=== PATIENT | female | born 1985 | race Caucasian/White ===

== ENCOUNTER 2016-10-17 10:51 | Emergency (ER) | payer MEDICAID ==
[2016-10-17 11:14] VITALS: TEMP 98.4
[2016-10-17] MEDS ORDERED: IBUPROFEN 600 MG TAB PO ONE (13:27)
[2016-10-17] MEDS ORDERED: ACETAMINOPHEN 500 MG TAB PO ONE (13:27)
[2016-10-17] MEDS ORDERED: LIDOCAINE 5% 1 EA PATCH TD ONE (13:27)
[2016-10-17 13:50] VITALS: BP 134/70; PULSE 84; RESP 18; O2SAT 97
--- NOTE | 2016-10-17 13:53 | EDPHY ---
H & P Stated Complaint: l2 l4 stress fx a few years ago/slipped and fell yesterday/ reinjured lower - Personal History LMP (Females 10-55): 1-7 Days Ago Current Tetanus/Diphtheria Vaccine: Yes - Medical/Surgical History Hx Asthma: No Hx Chronic Respiratory Disease: No Hx Diabetes: No Hx Cardiac Disease: No Hx Renal Disease: No Hx Cirrhosis: No Hx Alcoholism: No Hx HIV/AIDS: No Hx Splenectomy or Spleen Trauma: No Other PMH: Knee surgery, adenoids removed back prob/fx - Social History Smoking Status: Current every day smoker HPI/ROS: Chief complaint: Low back injury History of present illness: This is a 31-year-old female who presents to the emergency department for low back injury. Patient reports yesterday she tripped on a toy a falling backwards and landing directly onto her buttocks. Since then she has had pain in the low back and tailbone region. Pain has been persistent. It is worse with movement. She denies associated signs or symptoms including no paresthesias, no weakness or paralysis no bowel or bladder dysfunction. No other trauma reported. Patient has a history of fractures in her lumbar and sacral region from a few years ago. Review of systems: A 10 point review of systems was obtained and other than described above was negative (Oscar Wilson) - Physical Exam Exam: General Appearance: Alert, nontoxic Eyes: PERRLA Respiratory: Lungs clear to auscultation bilaterally Cardiac: Regular rate and rhythm. Gastrointestinal: Soft, nondistended, nontender Neurological: Alert and oriented x4. Strength and sensation intact and symmetrical. Skin: No lesions consistent with trauma noted on examination. Musculoskeletal: Head is normocephalic, atraumatic. Cervical and thoracic spine and paraspinal muscles are nontender. There is diffuse tenderness to the lower lumbar and sacral region and paraspinal muscles. There is no specific point tenderness, no crepitus, bony deformity or step-off appreciated. Pelvis stable to rocking motion. She is moving all extremities without difficulty. She is ambulating well. (Oscar Wilson) Constitutional: Initial Vital Signs Temperature (C) 36.9 C 10/17/16 11:06 Heart Rate 90 10/17/16 11:06 Respiratory Rate 17 10/17/16 11:06 Blood Pressure 135/70 H 10/17/16 11:06 O2 Sat (%) 96 10/17/16 11:06 O2 Delivery Mode Room Air Allergies/Adverse Reactions: No Known Allergies Allergy (Verified 10/17/16 11:05) Home Medications: Medication Instructions Recorded Hydrocodone/APAP 5/325 [[place] 1 tab PO Q6H #10 tab 10/17/16 5/325 (*)] IBUPROFEN 10/17/16 Medical Decision Making - Diagnostics Imaging: I viewed and interpreted images myself ED Course/Re-evaluation: Patient is discussed with my secondary supervising physician Dr. Tracy Rehman. Patient presents to the emergency department for evaluation low back pain after a slip and fall last night. She is moving well on her own. She has a nonfocal neurologic exam. X-rays with a questionable right S3 sacral fracture. I believe she is appropriate for outpatient management. She will be discharged home. Home care is discussed including pain management. She is referred to a spine doctor. Return precautions are given. Patient voiced understanding and agreement with plan. (Oscar Wilson) The patient was evaluated and managed by the physician pharmacy affairs assistant. I have reviewed this chart and I agree with the findings and plan of care as documented , as indicated by my signature. I am the secondary supervising physician. ( Tracy Rehman) Differential Diagnosis: Included but not limited to contusion, sprain or strain, bony fracture, herniated intervertebral disc, unlikely cauda equina syndrome (Oscar Wilson) - Data Points Medications Given: Discontinued Medications Acetaminophen (Tylenol) 1,000 mg PO EDNOW ONE Stop: 10/17/16 13:28 Last Admin: 10/17/16 13:40 Dose: 1,000 mg Ibuprofen (Motrin) 600 mg PO EDNOW ONE Stop: 10/17/16 13:28 Last Admin: 10/17/16 13:40 Dose: 600 mg Lidocaine (Lidoderm 5%) 1 ea TD EDNOW ONE Stop: 10/17/16 13:28 Last Admin: 10/17/16 13:40 Dose: 1 ea Miscellaneous Information (Patch Removal) 1 ea TD [id number] HUNG Stop: 04/15/17 20:59 Last Admin: 10/17/16 13:40 Dose: 1 ea Departure - Departure Disposition: Home, Routine, Self-Care Clinical Impression: Sacral fracture Condition: Good Instructions: Sacral Fracture (ED) Additional Instructions: Follow-up with a spine doctor for recheck In regards to pain control see the following: Use ibuprofen [600] mg [3] times a day for the next 2-3 days for pain In addition You have been prescribed [[place]] for pain. [[place]] contains Tylenol, do not take extra Tylenol/acetaminophen/Apap with it. It is sedating. If symptoms worsen or new symptoms develop return to the emergency room for recheck Referrals: EMIGDIO POLO [Primary Care Provider] - As per Instructions Dominik Randhawa MD [Medical Doctor] - As per Instructions Prescriptions: Hydrocodone/APAP 5/325 [[place] 5/325 (*)] 1 tab PO Q6H #10 tab
[2016-10-17] MEDS ORDERED: PATCH REMOVAL 1 EA PATCH TD SCH (21:00)
== END 2016-10-17 13:58 | disposition home or self-care (01) ==
DX: S32.10XA Unspecified fracture of sacrum, initial encounter for closed fracture (principal); F17.200 Nicotine dependence, unspecified, uncomplicated; W01.0XXA Fall on same level from slipping, tripping and stumbling without subsequent striking against object, initial encounter